=== PATIENT | female | born 1950 | race Caucasian/White ===

== ENCOUNTER 2017-05-03 13:50 | Day surgery (SDC) | payer MEDICARE ==
[~2017-05-03] VITALS: Ht 154.9 cm; Wt 66.2 kg
[~2017-05-03 13:50] MED LIST: ACET-2766 PO; ASPI-653 PO; BISA-67 PO; CA C1TAB83 PO; CHOL200047 PO; DICL75TA PO; DULO30CA PO; FINACEA TOP; FLAX100038 PO; FOS70 PO; HYDR1TAB69 PO; HYDR200T5 PO; LIP20 PO; MELO-253 PO; MULT-666 PO; NORT10CA PO; OMEP20CA11 PO; PRE1 PO; Sodium Chloride LOK Flush 10 mL Syringe IV PRN; TRAZ-118 PO; fentaNYL-PF 50 mCg/mL 2 mL Inj IVPUSH PRN
[2017-05-03] MEDS ORDERED: fentaNYL-PF 50 mCg/mL 2 mL Inj IVPUSH ONE (13:51)
[2017-05-03 14:32] VITALS: BP 136/70; PULSE 66; RESP 14; O2SAT 98
[2017-05-03] MEDS ORDERED: 0.9% Sodium Chloride 1,000 ML IV ONE (14:48)
[2017-05-03 15:27] VITALS: BP 123/55; PULSE 80; RESP 16; O2SAT 97
[2017-05-03 15:37] VITALS: BP 125/58; PULSE 73; RESP 16; O2SAT 96
--- NOTE | 2017-05-04 02:47 | ENDO ---
[address] [address] ENDOSCOPY PROCEDURE PATIENT: JL XIAO : 1950 MR#: [id number] ADMIT: 05/03/2017 JOB ID: [id number] DATE OF SERVICE: 05/03/2017 TYPE OF OPERATION: Colonoscopy with biopsy. PREOPERATIVE DIAGNOSIS(ES): Diarrhea. POSTOPERATIVE DIAGNOSIS(ES): 1. Mild sigmoid and ascending colon diverticulosis. 2. Small internal hemorrhoids. ANESTHESIA: 1. Fentanyl 150 mcg. 2. Versed 7 mg IV administered. COMPLICATIONS: None. BLOOD LOSS: Minimal. DESCRIPTION OF PROCEDURE: After risks and benefits explained to the patient, informed consent was obtained. After anesthesia administered, colonoscope was inserted per rectum to the terminal ileum. Mucosa examined. Prep of the patient was excellent. After the procedure was done, the scope was withdrawn and the procedure terminated. FINDINGS: Upon inspection of the anus, no masses, hemorrhoids, ulcers or fissures that was seen. Throughout the entire examination, there was mild sigmoid diverticulosis and ascending colon diverticulosis. No polyps or masses were seen. Biopsies taken of the terminal ileum and colon. Retroflexion showed small internal hemorrhoids. IMPRESSION: 1. Small internal hemorrhoids. 2. Diverticulosis mild in the ascending and sigmoid colon. RECOMMENDATIONS: Await pathology results. Follow up in GI clinic as needed.
--- NOTE | 2017-05-07 11:14 | PATH ---
SURGICAL PATHOLOGY Attending Physician:Maykel Ortiz MD CASE STATUS: Signed Out PATIENT NAME: JL XIAO PID: [id number] : 1950 DATE COLLECTED:05/03/2017 00:00 SPECIMEN: 1: Small Intestine/Bowel, Biopsy 2: Colon, Biopsy CLINICAL HISTORY: 1. TI BX 2. RANDOM COLON BX FINAL DIAGNOSIS: 1.TERMINAL ILEUM BIOPSY: FRAGMENTS OF NORMAL-APPEARING TERMINAL ILEUM MUCOSA. Negative for granulomas. Negative for significant inflammation, dysplasia and malignancy. 2.RANDOM COLON BIOPSIES: CHANGES CONSISTENT WITH LYMPHOCYTIC COLITIS. ICD10 K52.89 GROSS DESCRIPTION: 1. Received in formalin, labeled with the patient' s name and "TI", are two fragments of arredondo, soft tissue ranging in size from 0.1 x 0.1 x 0.1 cm to 0.2 x 0.1 x 0.1 cm. All fragments are totally submitted in cassette 1A. 2. Received in formalin, labeled with the patient' s name and "random BX", are multiple fragments of arredondo, soft tissue ranging in size from 0.1 x 0.1 x 0.1 cm to 0.2 x 0.1 x 0.1 cm. All fragments are totally submitted in cassette 2A. ([id number]) MICRO DESCRIPTION: See diagnosis. ICD-9 CODES: CPT CODES: 1: 20024 2: 37270 Electronically Signed Out Jamal Bhatt MD [facility] Pathology [facility] [address], [place] [address] Technical component performed at [facility], [facility] [address], [place], [address]
== END 2017-05-03 23:59 | disposition home or self-care (01) ==
LOC: END 13:50
PROVIDERS: ATTEND Internal Medicine Gastroenterology
DX: K52.832 Lymphocytic colitis (principal); K57.30 Diverticulosis of large intestine without perforation or abscess without bleeding; K64.8 Other hemorrhoids; I10 Essential (primary) hypertension; R00.2 Palpitations; E78.5 Hyperlipidemia, unspecified; G47.33 Obstructive sleep apnea (adult) (pediatric); Z86.73 Personal history of transient ischemic attack (TIA), and cerebral infarction without residual deficits; Z79.82 Long term (current) use of aspirin
CPT/HCPCS: 45380; G0500; J2250; J3010; J7030